=== PATIENT | female | born 2000 | race Caucasian/White ===

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

== ENCOUNTER 2020-05-28 14:34 | Emergency (ER) | payer OTHER ==
[2020-05-28 14:40] VITALS: BP 95/49; PULSE 61; TEMP 98.1; BMI 29.2
== END 2020-05-28 16:37 | disposition home or self-care (01) ==
LOC: JERFT 14:34
DX: S90.211A Contusion of right great toe with damage to nail, initial encounter (principal); W22.8XXA Striking against or struck by other objects, initial encounter
CPT/HCPCS: 73630-TC-RT-FY; 99283-25

== ENCOUNTER 2020-10-29 16:37 | Emergency (ER) | payer OTHER ==
[2020-10-29 16:48] VITALS: BP 115/52; PULSE 89; TEMP 97; BMI 31.4
[2020-10-29] MEDS ORDERED: KETOROLAC TROMETHAMINE 30 MG/1 ML VIAL IM ONE (18:03)
[2020-10-29] MEDS ORDERED: CYCLOBENZAPRINE HCL 10 MG TABLET (FP) PO ONE (18:03)
[2020-10-29] MEDS ORDERED: LIDOCAINE 5% TOPICAL PATCH TP ONE (18:03)
[2020-10-29] MEDS ORDERED: CYCLOBENZAPRINE HCL 10 MG TABLET (FP) ONE (18:10)
[2020-10-29] MEDS ORDERED: KETOROLAC TROMETHAMINE 30 MG/1 ML VIAL ONE (18:10)
[2020-10-29] MEDS ORDERED: LIDOCAINE 5% TOPICAL PATCH ONE (18:10)
[2020-10-29] MEDS ORDERED: LIDOCAINE PATCH REMOVAL MC SCH (22:00)
== END 2020-10-29 18:40 | disposition home or self-care (01) ==
LOC: JERFT 16:37
PROC: 3E0233Z Introduction of Anti-inflammatory into Muscle, Percutaneous Approach (ICD-10-PCS; principal; 2020-10-29)
DX: M54.5 Low back pain (principal)
CPT/HCPCS: 72100-TC-FY; 99284-25

== ENCOUNTER 2021-04-23 13:18 | Emergency (ER) | payer OTHER ==
[2021-04-23 13:30] VITALS: BP 103/60; PULSE 73; TEMP 98.3; BMI 29.4
[2021-04-23 14:18] LABS: EPI CELLS 11 /uL (0-25.1); HYALINE CASTS 0 /uL (0-3.1); PH,URINE 6.5 (5.0-8.0); URINE APPEARANCE CLEAR; URINE BACTERIA 268 /uL (0-1359); URINE BILIRUBIN NEGATIVE (NEGATIVE); URINE COLOR YELLOW; URINE GLUCOSE (UA) NEGATIVE (NEGATIVE); URINE KETONE NEGATIVE (NEGATIVE); URINE LEUK ESTERASE NEGATIVE (NEGATIVE); URINE NITRITE NEGATIVE (NEGATIVE); URINE PROTEIN NEGATIVE (NEGATIVE); URINE RBC 23 /uL (0-23.9); URINE UROBILINOGEN 0.2 mg/dL (0.2-1.0); URINE WBC 2 /uL (0-25.8)
[2021-04-23 14:19] LABS: HCG,QUALITATIVE URINE Negative
[2021-04-23] MEDS ORDERED: FAMOTIDINE 20 MG/50 ML IVPB 20 MG/50 ML MG IVPB ONE ×2 (14:24→14:38)
[2021-04-23] MEDS ORDERED: ONDANSETRON 4 MG/2 ML VIAL IVPUSH ONE (14:24)
[2021-04-23] MEDS ORDERED: SODIUM CHLORIDE 1,000 ML IV STA (14:24)
[2021-04-23] MEDS ORDERED: ACETAMINOPHEN 1000 MG/100 ML BAG IVPB ONE (14:25)
[2021-04-23] MEDS ORDERED: ONDANSETRON 4 MG/2 ML VIAL ONE (14:38)
[2021-04-23] MEDS ORDERED: ACETAMINOPHEN INJECTION 100 ML IVPB ONE (14:42)
[2021-04-23 15:05] LABS: INR 1.14 (0.83-1.09); PROTHROMBIN TIME (PATIENT) 13.1 SEC (9.7-13.0)
[2021-04-23 15:13] LABS: BASO % 0.5 % (0-2.0); EOS % 2.1 % (0-4.5); HEMOGLOBIN 12.8 GM/dL (10.7-15.3); LYMPH % 20.2 % (8-40); MCH 32.6 pg (25.7-33.7); MCHC 34.7 g/dl (32.0-36.0); MEAN CELL VOLUME 93.8 fl (80-96); MEAN PLT VOLUME 8.5 fl (7.5-11.1); MONO % 6.8 % (3.8-10.2); NEUT % 70.4 % (42.8-82.8); PLATELET COUNT 297 10^3/uL (134-434); RBC 3.94 M/mm3 (3.60-5.2); RDW 12.9 % (11.6-15.6); WHITE BLOOD COUNT 7.9 K/mm3 (4.0-10.0)
[2021-04-23 15:16] LABS: CALCIUM 9.2 mg/dL (8.5-10.1)
[2021-04-23 15:17] LABS: ALBUMIN 3.8 g/dl (3.4-5.0); BLOOD UREA NITROGEN 8.9 mg/dL (7-18)
[2021-04-23 15:20] LABS: CREATININE 0.4 mg/dL (0.55-1.3)
[2021-04-23 15:21] LABS: BILIRUBIN,TOTAL 0.4 mg/dL (0.2-1); TOT PROT 7.1 g/dl (6.4-8.2)
[2021-04-23] MEDS ORDERED: morphine CARPU-JECT 2 MG/1 ML DISP.SYRIN IVPUSH ONE (15:52)
[2021-04-23] MEDS ORDERED: MAG HYDROX/AL HYDROX/SIMETH 30 ML UNIT-DOSE CUP PO ONE (15:53)
[2021-04-23] MEDS ORDERED: MAG HYDROX/AL HYDROX/SIMETH 30 ML UNIT-DOSE CUP ONE (15:57)
== END 2021-04-23 18:01 | disposition home or self-care (01) ==
LOC: JERFT 13:18
PROC: 3E023NZ Introduction of Analgesics, Hypnotics, Sedatives into Muscle, Percutaneous Approach (ICD-10-PCS; principal; 2021-04-23)
DX: K21.9 Gastro-esophageal reflux disease without esophagitis (principal)
CPT/HCPCS: 36415; 76705-TC; 80053; 81003; 83690; 84703; 85025; 85610; 87086; 99284-25; J0131

== ENCOUNTER 2021-12-15 13:28 | Emergency (ER) | payer OTHER ==
[2021-12-15 14:03] VITALS: BP 105/66; RESP 18; TEMP 98.3
[2021-12-15] MEDS ORDERED: FAMOTIDINE 20 MG/50 ML IVPB 20 MG/50 ML MG IVPB ONE ×2 (16:27→16:31)
[2021-12-15] MEDS ORDERED: SODIUM CHLORIDE 0.9% 500 ML INFUS.BAG IV ONE (16:27)
[2021-12-15] MEDS ORDERED: KETOROLAC TROMETHAMINE 30 MG/1 ML VIAL IVPUSH ONE (16:27)
[2021-12-15] MEDS ORDERED: ONDANSETRON 4 MG/2 ML VIAL IVPUSH ONE (16:27)
[2021-12-15] MEDS ORDERED: ONDANSETRON 4 MG/2 ML VIAL ONE (16:31)
[2021-12-15] MEDS ORDERED: KETOROLAC TROMETHAMINE 30 MG/1 ML VIAL ONE (16:31)
[2021-12-15 17:32] LABS: PH,URINE 6.5 (5.0-8.0); URINE APPEARANCE CLEAR; URINE BILIRUBIN NEGATIVE (NEGATIVE); URINE COLOR YELLOW; URINE GLUCOSE (UA) NEGATIVE (NEGATIVE); URINE KETONE NEGATIVE (NEGATIVE); URINE LEUK ESTERASE NEGATIVE (NEGATIVE); URINE NITRITE NEGATIVE (NEGATIVE); URINE PROTEIN NEGATIVE (NEGATIVE)
[2021-12-15 18:13] LABS: BASO % 0.5 % (0-2.0); EOS % 1.3 % (0-4.5); HEMATOCRIT 38.3 % (32.4-45.2); HEMOGLOBIN 12.9 GM/dL (10.7-15.3); LYMPH % 25.4 % (8-40); MCHC 33.8 g/dl (32.0-36.0); MEAN CELL VOLUME 94.7 fl (80-96); MEAN PLT VOLUME 8.4 fl (7.5-11.1); MONO % 6.4 % (3.8-10.2); NEUT % 66.4 % (42.8-82.8); PLATELET COUNT 334 10^3/uL (134-434); RBC 4.04 M/mm3 (3.60-5.2); WHITE BLOOD COUNT 9.4 K/mm3 (4.0-10.0)
[2021-12-15 18:32] LABS: ALBUMIN 3.9 g/dl (3.4-5.0); CALCIUM 9.5 mg/dL (8.5-10.1)
[2021-12-15 18:33] LABS: BLOOD UREA NITROGEN 9.4 mg/dL (7-18)
[2021-12-15 18:35] LABS: CREATININE 0.6 mg/dL (0.55-1.3)
[2021-12-15 18:37] LABS: BILIRUBIN,TOTAL 0.2 mg/dL (0.2-1); TOT PROT 7.1 g/dl (6.4-8.2)
[2021-12-15 20:14] VITALS: PULSE 81
== END 2021-12-15 20:21 | disposition home or self-care (01) ==
LOC: JER 13:28
DX: N83.201 Unspecified ovarian cyst, right side (principal)
CPT/HCPCS: 36415; 76830-TC; 80053; 81003; 83690; 84703; 85025; 87086; 99284-25

== ENCOUNTER 2022-03-24 08:26 | Emergency (ER) | payer OTHER ==
[2022-03-24 08:32] VITALS: BMI 28.5
[2022-03-24] MEDS ORDERED: SODIUM CHLORIDE 1,000 ML IV STA (09:22)
[2022-03-24] MEDS ORDERED: FAMOTIDINE 20 MG/50 ML IVPB 20 MG/50 ML MG IVPB ONE ×2 (09:23→10:03)
[2022-03-24] MEDS ORDERED: ONDANSETRON 4 MG/2 ML VIAL IVPUSH ONE (09:23)
[2022-03-24] MEDS ORDERED: ACETAMINOPHEN 1000 MG/100 ML BAG IVPB ONE (09:29)
[2022-03-24] MEDS ORDERED: ACETAMINOPHEN INJECTION 100 ML IVPB ONE (10:03)
[2022-03-24] MEDS ORDERED: ONDANSETRON 4 MG/2 ML VIAL ONE (10:03)
[2022-03-24 10:55] LABS: EPI CELLS >36 /uL (0-25.1); HCG,QUALITATIVE URINE Negative; HYALINE CASTS 1 /uL (0-3.1); URINE APPEARANCE CLOUDY; URINE BACTERIA 1771 /uL (0-1359); URINE BILIRUBIN NEGATIVE (NEGATIVE); URINE COLOR YELLOW; URINE GLUCOSE (UA) NEGATIVE (NEGATIVE); URINE KETONE NEGATIVE (NEGATIVE); URINE LEUK ESTERASE NEGATIVE (NEGATIVE); URINE NITRITE NEGATIVE (NEGATIVE); URINE PROTEIN TRACE (NEGATIVE); URINE UROBILINOGEN 0.2 mg/dL (0.2-1.0); URINE WBC 36 /uL (0-25.8)
[2022-03-24 10:56] LABS: BASO % 0.6 % (0-2.0); EOS % 1.1 % (0-4.5); HEMATOCRIT 38.4 % (32.4-45.2); HEMOGLOBIN 12.9 GM/dL (10.7-15.3); LYMPH % 20.7 % (8-40); MCH 32.3 pg (25.7-33.7); MCHC 33.5 g/dl (32.0-36.0); MEAN CELL VOLUME 96.4 fl (80-96); MEAN PLT VOLUME 7.5 fl (7.5-11.1); MONO % 6.6 % (3.8-10.2); PLATELET COUNT 359 10^3/uL (134-434); RBC 3.99 M/mm3 (3.60-5.2); RDW 12.7 % (11.6-15.6); WHITE BLOOD COUNT 5.6 K/mm3 (4.0-10.0)
[2022-03-24 11:02] LABS: URINE RBC 183.4 /uL (0-23.9)
[2022-03-24 11:11] LABS: ALBUMIN 3.9 g/dl (3.4-5.0); CALCIUM 9.8 mg/dL (8.5-10.1)
[2022-03-24 11:13] LABS: CREATININE 0.5 mg/dL (0.55-1.3)
[2022-03-24 11:15] LABS: BILIRUBIN,TOTAL 0.6 mg/dL (0.2-1); TOT PROT 7.4 g/dl (6.4-8.2)
[2022-03-24] MEDS ORDERED: MAG HYDROX/AL HYDROX/SIMETH 30 ML UNIT-DOSE CUP PO ONE (13:53)
[2022-03-24] MEDS ORDERED: MAG HYDROX/AL HYDROX/SIMETH 30 ML UNIT-DOSE CUP ONE (14:09)
[2022-03-24 14:34] VITALS: BP 100/60; PULSE 70; RESP 16; TEMP 97.8
== END 2022-03-24 14:20 | disposition home or self-care (01) ==
LOC: JER 08:26
PROC: 3E033GC Introduction of Other Therapeutic Substance into Peripheral Vein, Percutaneous Approach (ICD-10-PCS; principal; 2022-03-24)
DX: K29.00 Acute gastritis without bleeding (principal); N30.00 Acute cystitis without hematuria
CPT/HCPCS: 36415; 76700-TC; 80053; 81003; 82150; 83690; 84703; 85025; 87077; 87086; 87186; 99284-25

== ENCOUNTER 2022-04-08 10:11 | Emergency (ER) | payer OTHER ==
[2022-04-08 10:24] VITALS: BMI 28.6
[2022-04-08] MEDS ORDERED: SODIUM CHLORIDE 0.9% 500 ML INFUS.BAG IV ONE (11:25)
[2022-04-08 13:00] LABS: BASO % 0.8 % (0-2.0); EOS % 1.5 % (0-4.5); HEMATOCRIT 36.3 % (32.4-45.2); HEMOGLOBIN 12.6 GM/dL (10.7-15.3); LYMPH % 21.1 % (8-40); MCH 33.3 pg (25.7-33.7); MCHC 34.7 g/dl (32.0-36.0); MEAN CELL VOLUME 95.9 fl (80-96); MEAN PLT VOLUME 7.7 fl (7.5-11.1); MONO % 8.4 % (3.8-10.2); NEUT % 68.2 % (42.8-82.8); PLATELET COUNT 326 10^3/uL (134-434); RBC 3.78 M/mm3 (3.60-5.2); RDW 12.5 % (11.6-15.6); WHITE BLOOD COUNT 6.6 K/mm3 (4.0-10.0)
[2022-04-08 13:20] LABS: CHLORIDE 106 mmol/L (98-107); SODIUM 142 mmol/L (136-145)
[2022-04-08 13:30] LABS: CALCIUM 9.3 mg/dL (8.5-10.1)
[2022-04-08 13:31] LABS: ALBUMIN 3.8 g/dl (3.4-5.0); ANION GAP 6 MMOL/L (8-16); BLOOD UREA NITROGEN 10.7 mg/dL (7-18); CO2 30 mmol/L (21-32); GLUCOSE,RANDOM 87 mg/dL (74-106)
[2022-04-08 13:32] LABS: LIPASE 141 U/L (73-393)
[2022-04-08 13:34] LABS: CREATININE 0.4 mg/dL (0.55-1.3); SGOT/AST 17 U/L (15-37); SGPT/ALT 19 U/L (13-61)
[2022-04-08 13:36] LABS: BILIRUBIN,TOTAL 0.4 mg/dL (0.2-1); TOT PROT 6.7 g/dl (6.4-8.2)
[2022-04-08 13:37] LABS: ALK PHOS 59 U/L (45-117)
[2022-04-08 16:29] VITALS: BP 103/69; PULSE 94; RESP 16; TEMP 98.9
== END 2022-04-08 16:29 | disposition home or self-care (01) ==
LOC: JER 10:11
DX: R42 Dizziness and giddiness (principal)
CPT/HCPCS: 0241U-QW; 36415; 80053; 83690; 84702; 85025; 85379; 93005; 93010; 93308; 99285-25

== ENCOUNTER 2022-09-17 05:44 | Day surgery (SDC) | payer OTHER ==
[2022-09-16 10:57] VITALS: BMI 29.4
[2022-09-17] MEDS ORDERED: BUPIVACAINE HCL/PF 0.5% (5MG/ML) 10 ML VIAL ONE (07:24)
[2022-09-17] MEDS ORDERED: PROPOFOL 20 ML ONE ×2 (07:43→09:53)
[2022-09-17] MEDS ORDERED: ROCURONIUM BROMIDE 50 MG/5 ML SYRINGE ONE (07:44)
[2022-09-17] MEDS ORDERED: MIDAZOLAM HCL 2 MG/2 ML SINGLE DOSE VIAL ONE (07:44)
[2022-09-17] MEDS ORDERED: LIDOCAINE HCL/PF 2% SDV 5ML VIAL ONE (07:49)
[2022-09-17] MEDS ORDERED: ONDANSETRON 4 MG/2 ML VIAL IVPUSH PRN (07:55)
[2022-09-17] MEDS ORDERED: PROMETHAZINE HCL 25 MG/1 ML VIAL IVPB PRN (07:55)
[2022-09-17] MEDS ORDERED: oxyCODONE HCL 5 MG TABLET PO PRN (07:55)
[2022-09-17] MEDS ORDERED: LACTATED RINGERS SOLUTION 1,000 ML IV SCH (08:00)
[2022-09-17] MEDS ORDERED: SODIUM CHLORIDE 0.9% P/F 10 ML VIAL IJ ONE (08:13)
[2022-09-17] MEDS ORDERED: ceFAZolin SODIUM 1 GM VIAL ONE (08:13)
[2022-09-17] MEDS ORDERED: ceFAZolin SODIUM 1 GM VIAL IVPB ONE (08:19)
[2022-09-17] MEDS ORDERED: DEXAMETHASONE SOD PHOSPHATE 4 MG/1 ML VIAL ONE (08:26)
[2022-09-17] MEDS ORDERED: ONDANSETRON 4 MG/2 ML VIAL ONE (08:26)
[2022-09-17] MEDS ORDERED: BUPIVACAINE HCL/PF 0.5% (5 MG/ML) 30 ML VIAL IJ ONE ×2 (08:39)
[2022-09-17] MEDS ORDERED: ACETAMINOPHEN INJECTION 100 ML IVPB ONE (08:42)
[2022-09-17] MEDS ORDERED: GLYCOPYRROLATE 0.2 MG/1 ML VIAL ONE (09:28)
[2022-09-17] MEDS ORDERED: NEOSTIGMINE METHYLSULFATE 0.5 MG/1 ML - 10 ML MDV ONE (09:28)
[2022-09-17] MEDS ORDERED: KETOROLAC TROMETHAMINE 30 MG/1 ML VIAL ONE (09:32)
[2022-09-17] MEDS ORDERED: oxyCODONE HCL 5 MG TABLET ONE (13:49)
[2022-09-17 14:09] VITALS: RESP 18
[2022-09-17 14:52] VITALS: BP 120/70
[2022-09-17 14:57] VITALS: PULSE 78; TEMP 98.2
== END 2022-09-17 14:58 | disposition home or self-care (01) ==
LOC: JASU-SURG 05:44
PROVIDERS: ATTEND Surgery
PROC: 0FT44ZZ Resection of Gallbladder, Percutaneous Endoscopic Approach (ICD-10-PCS; principal; 2022-09-17 08:00)
DX: K81.1 Chronic cholecystitis (principal)
CPT/HCPCS: 81025; 88304-TC; 94760

== ENCOUNTER 2023-02-19 09:47 | Emergency (ER) | payer OTHER ==
[2023-02-19 10:07] VITALS: RESP 18; TEMP 98.6; BMI 28.1
[2023-02-19] MEDS ORDERED: ONDANSETRON 4 MG/2 ML VIAL IVPUSH ONE (10:55)
[2023-02-19] MEDS ORDERED: morphine CARPU-JECT 2 MG/1 ML DISP.SYRIN IVPUSH ONE (10:58)
[2023-02-19] MEDS ORDERED: ONDANSETRON 4 MG/2 ML VIAL ONE (11:22)
[2023-02-19 11:49] LABS: BASO % 0.6 % (0-2.0); EOS % 2.3 % (0-4.5); HEMATOCRIT 38.8 % (32.4-45.2); HEMOGLOBIN 13.3 GM/dL (10.7-15.3); LYMPH % 16.9 % (8-40); MCH 32.4 pg (25.7-33.7); MCHC 34.3 g/dl (32.0-36.0); MEAN CELL VOLUME 94.4 fl (80-96); MEAN PLT VOLUME 7.6 fl (7.5-11.1); MONO % 8.2 % (3.8-10.2); PLATELET COUNT 374 10^3/uL (134-434); RBC 4.11 M/mm3 (3.60-5.2); RDW 12.9 % (11.6-15.6); WHITE BLOOD COUNT 7.2 K/mm3 (4.0-10.0)
[2023-02-19 11:57] LABS: PH,URINE 7.5 (5.0-8.0); URINE APPEARANCE CLEAR; URINE BILIRUBIN NEGATIVE (NEGATIVE); URINE COLOR YELLOW; URINE GLUCOSE (UA) NEGATIVE (NEGATIVE); URINE KETONE NEGATIVE (NEGATIVE); URINE LEUK ESTERASE NEGATIVE (NEGATIVE); URINE NITRITE NEGATIVE (NEGATIVE); URINE PROTEIN NEGATIVE (NEGATIVE); URINE UROBILINOGEN 0.2 mg/dL (0.2-1.0)
[2023-02-19 12:17] LABS: CALCIUM 9.5 mg/dL (8.5-10.1)
[2023-02-19 12:18] LABS: ALBUMIN 3.9 g/dl (3.4-5.0); BLOOD UREA NITROGEN 9.7 mg/dL (7-18)
[2023-02-19 12:21] LABS: CREATININE 0.5 mg/dL (0.55-1.3)
[2023-02-19 12:22] LABS: BILIRUBIN,TOTAL 0.3 mg/dL (0.2-1); TOT PROT 7.2 g/dl (6.4-8.2)
[2023-02-19] MEDS ORDERED: KETOROLAC TROMETHAMINE 30 MG/1 ML VIAL IVPUSH ONE (12:35)
[2023-02-19] MEDS ORDERED: ACETAMINOPHEN 500 MG TABLET (FP) PO ONE (12:36)
[2023-02-19] MEDS ORDERED: KETOROLAC TROMETHAMINE 30 MG/1 ML VIAL ONE (13:00)
[2023-02-19] MEDS ORDERED: ACETAMINOPHEN 500 MG TABLET (FP) ONE (13:01)
[2023-02-19 15:26] VITALS: BP 110/68; PULSE 71
== END 2023-02-19 15:26 | disposition home or self-care (01) ==
LOC: JER 09:47
PROC: 3E0333Z Introduction of Anti-inflammatory into Peripheral Vein, Percutaneous Approach (ICD-10-PCS; principal; 2023-02-19)
PROC: 3E033GC Introduction of Other Therapeutic Substance into Peripheral Vein, Percutaneous Approach (ICD-10-PCS; 2023-02-19)
PROC: 3E033GC Introduction of Other Therapeutic Substance into Peripheral Vein, Percutaneous Approach (ICD-10-PCS; 2023-02-19)
DX: R10.11 Right upper quadrant pain (principal); R10.811 Right upper quadrant abdominal tenderness; R11.0 Nausea
CPT/HCPCS: 36415; 74177-TC; 76705-TC; 80053; 81003; 83690; 84703; 85025; 87086; 99285-25; Q9967

== ENCOUNTER 2024-03-17 09:41 | Inpatient (IN) | payer OTHER ==
[2024-03-17] MEDS: ELECTROLYTE-148 SOLN 1,000 ML IV SCH (10:30)
[2024-03-17 11:15] LABS: BASO % 0.3 % (0-2.0); EOS % 0.6 % (0-4.5); HEMATOCRIT 30.3 % (32.4-45.2); HEMOGLOBIN 10.3 GM/dL (10.7-15.3); LYMPH % 12.9 % (8-40); MCH 28.4 pg (25.7-33.7); MCHC 33.9 g/dl (32.0-36.0); MEAN CELL VOLUME 83.7 fl (80-96); MEAN PLT VOLUME 7.9 fl (7.5-11.1); MONO % 5.5 % (3.8-10.2); NEUT % 80.7 % (42.8-82.8); PLATELET COUNT 362 10^3/uL (134-434); RBC 3.62 M/mm3 (3.60-5.2); RDW 14.3 % (11.6-15.6); WHITE BLOOD COUNT 9.8 K/mm3 (4.0-10.0)
[2024-03-17 11:20] LABS: INR 0.92 (0.83-1.09); PROTHROMBIN TIME (PATIENT) 10.6 SEC (9.7-13.0)
[2024-03-17 11:23] LABS: ACTIVATED PTT 26.7 SECONDS (25.2-36.5)
[2024-03-17 11:30] LABS: POTASSIUM 3.8 mmol/L (3.5-5.1)
[2024-03-17 11:31] VITALS: BMI 34.6
[2024-03-17 11:32] LABS: BLOOD UREA NITROGEN 6.3 mg/dL (7-18); CALCIUM 9.1 mg/dL (8.5-10.1)
[2024-03-17 11:38] LABS: CREATININE 0.3 mg/dL (0.55-1.3)
[2024-03-17 12:23] LABS: HIV INTERPRETATION NEGATIVE (NEGATIVE)
[2024-03-17] MEDS ORDERED: BUTORPHANOL TARTRATE 2 MG/ML VIAL ONE (13:47)
[2024-03-17] MEDS ORDERED: PROMETHAZINE HCL 25 MG/1 ML VIAL ONE (13:47)
[2024-03-17] MEDS: BUTORPHANOL TARTRATE 2 MG/ML VIAL IVPB PRN (13:51)
[2024-03-17] MEDS ORDERED: AMPICILLIN SODIUM 2 GM VIAL ONE (14:04)
[2024-03-17] MEDS: AMPICILLIN - 2 GM in SODIUM CHLORIDE 100 ML IVPB ONE (14:11)
[2024-03-17] MEDS: OXYTOCIN 30 UNITS in 0.9% NS 30 UNIT/500 ML INFUS.BAG IVPB SCH (14:13)
[2024-03-17] MEDS ORDERED: OXYTOCIN 30 UNITS in 0.9% NS 30 UNIT/500 ML INFUS.BAG IVPB ONE (14:13)
[2024-03-17] MEDS ORDERED: AMPICILLIN - 1 GM in SODIUM CHLORIDE 100 ML IVPB SCH (15:30)
[2024-03-17] MEDS ORDERED: FENTANYL/BUPIVACAINE/NS/PF - PCEA - 50 ML DISP.SYRIN EP ONE ×2 (16:01→21:29)
[2024-03-17] MEDS ORDERED: NALOXONE HCL 0.4 MG/ML VIAL IVPUSH PRN (16:08)
[2024-03-17] MEDS ORDERED: BUPIVACAINE HCL/PF 0.25% (2.5MG/ML) 10 ML VIAL ONE (16:09)
[2024-03-17] MEDS: FENTANYL/BUPIVACAINE/NS/PF - PCEA - 50 ML DISP.SYRIN EP SCH (16:25)
[2024-03-17] MEDS ORDERED: PHENYLEPHRINE HCL 10 MG/1 ML SINGLE DOSE VIAL ONE (16:39)
[2024-03-17] MEDS ORDERED: AMPICILLIN SODIUM 1 GM VIAL ONE ×2 (18:32→21:29)
[2024-03-17] MEDS: AMPICILLIN - 1 GM in SODIUM CHLORIDE 100 ML IVPB SCH (18:33)
[2024-03-18] MEDS ORDERED: AMPICILLIN SODIUM 1 GM VIAL ONE ×2 (01:25→05:42)
[2024-03-18] MEDS ORDERED: FENTANYL/BUPIVACAINE/NS/PF - PCEA - 50 ML DISP.SYRIN EP ONE ×2 (01:38→04:40)
[2024-03-18] MEDS: ACETAMINOPHEN 325 MG TABLET (FP) PO ONE (02:40)
[2024-03-18] MEDS ORDERED: ACETAMINOPHEN 325 MG TABLET (FP) ONE (02:47)
[2024-03-18] MEDS ORDERED: LIDO 2%/EPI 1:200000 PRESRVFRE (20 ML SDVIAL) ONE (07:24)
[2024-03-18] MEDS ORDERED: ceFAZolin SODIUM 1 GM VIAL ONE (07:25)
[2024-03-18] MEDS ORDERED: METHYLERGONOVINE MALEATE 0.2 MG/1 ML AMP IM PRN (07:32)
[2024-03-18] MEDS ORDERED: FENTANYL CITRATE/PF 50 MCG/ML VIAL ONE ×2 (07:36→07:57)
[2024-03-18] MEDS ORDERED: AZITHROMYCIN IVPB 500 MG/250 ML BAG IVPB ONE (07:46)
[2024-03-18] MEDS ORDERED: morphine SULFATE/PF 1 MG/2 ML (2cc Syringe - QUVA) ONE (07:57)
[2024-03-18] MEDS: OXYTOCIN 20 UNITS in 0.9% NS 20 UNIT/1,000 ML INFUS.BAG IV SCH (08:30)
[2024-03-18] MEDS ORDERED: OXYTOCIN 20 UNITS in 0.9% NS 20 UNIT/1,000 ML INFUS.BAG IV ONE (08:32)
[2024-03-18] MEDS ORDERED: ONDANSETRON 4 MG/2 ML VIAL IVPUSH PRN (09:11)
[2024-03-18 10:04] LABS: CORD BASE EXCESS -5.4 mmol/L (0-2); CORD pH 7.27 (7.14-7.44)
[2024-03-18 10:05] LABS: CORD BASE EXCESS -6.7 mmol/L (0-2); CORD HCO3 19.4 mmHg (20-29); CORD PCO2 40.7 mmHg (30-78); CORD pH 7.295 (7.14-7.44)
[2024-03-18] MEDS ORDERED: ACETAMINOPHEN INJECTION 100 ML ONE (10:28)
[2024-03-18] MEDS: ACETAMINOPHEN 1000 MG/100 ML BAG IVPB ONE (10:30)
[2024-03-18] MEDS: IBUPROFEN 600 MG TABLET (FP) PO PRN (16:36)
[2024-03-18] MEDS: SIMETHICONE 80 MG TAB.CHEW (FP) PO PRN (16:36)
[2024-03-19 07:52] VITALS: RESP 18
[2024-03-19 08:10] LABS: BASO % 0.6 % (0-2.0); EOS % 0.7 % (0-4.5); HEMATOCRIT 24.6 % (32.4-45.2); HEMOGLOBIN 8.3 GM/dL (10.7-15.3); LYMPH % 17.9 % (8-40); MCH 28.2 pg (25.7-33.7); MCHC 33.6 g/dl (32.0-36.0); MEAN CELL VOLUME 83.9 fl (80-96); MONO % 6.4 % (3.8-10.2); NEUT % 74.4 % (42.8-82.8); PLATELET COUNT 299 10^3/uL (134-434); RBC 2.93 M/mm3 (3.60-5.2); RDW 14.6 % (11.6-15.6); WHITE BLOOD COUNT 8.7 K/mm3 (4.0-10.0)
[2024-03-19] MEDS ORDERED: DIPHTH,PERTUSS(ACELL),TET 0.5 ML DISP.SYRIN IM ONE (10:00)
[2024-03-19] MEDS ORDERED: FLU VACCINE (FLULAVAL) PF 45 MCG/0.5 ML SYRINGE 2024-2025 IM ONE (10:00)
[2024-03-19] MEDS ORDERED: oxyCODONE HCL 5 MG TABLET PO PRN (19:32)
[2024-03-19] MEDS: SENNOSIDES/DOCUSATE COMBO (SENNA PLUS) TABLET (UD) PO PRN (22:00)
[2024-03-20] MEDS: DIPHTH,PERTUSS(ACELL),TET 0.5 ML DISP.SYRIN IM ONE (09:52)
[2024-03-20] MEDS: FLU VACCINE (FLULAVAL) PF 45 MCG/0.5 ML SYRINGE 2024-2025 IM ONE (09:53)
[2024-03-20] MEDS: ACETAMINOPHEN/CAFFEINE/BUTALBITAL 1 TAB PO PRN (15:40)
[2024-03-20] MEDS: oxyCODONE HCL 5 MG TABLET PO PRN (21:45)
[2024-03-21 08:18] LABS: BASO % 0.4 % (0-2.0); EOS % 2.1 % (0-4.5); HEMATOCRIT 26.4 % (32.4-45.2); HEMOGLOBIN 8.8 GM/dL (10.7-15.3); LYMPH % 15.7 % (8-40); MCH 28.1 pg (25.7-33.7); MCHC 33.2 g/dl (32.0-36.0); MEAN CELL VOLUME 84.5 fl (80-96); MEAN PLT VOLUME 7.8 fl (7.5-11.1); MONO % 5.7 % (3.8-10.2); NEUT % 76.1 % (42.8-82.8); PLATELET COUNT 377 10^3/uL (134-434); RBC 3.13 M/mm3 (3.60-5.2); RDW 14.6 % (11.6-15.6); WHITE BLOOD COUNT 9.4 K/mm3 (4.0-10.0)
[2024-03-21] MEDS: BISACODYL 10 MG SUPP.RECT RC PRN (09:19)
[2024-03-21] MEDS: ACETAMINOPHEN/CAFFEINE/BUTALBITAL 1 TAB PO SCH (16:17)
[2024-03-21] MEDS: ACETAMINOPHEN 325 MG TABLET (FP) PO SCH ×2 (18:06→20:08)
[2024-03-21] MEDS: MELATONIN 1 MG TABLET PO ONE (22:09)
[2024-03-22 08:25] VITALS: BP 107/72; PULSE 88; TEMP 98
[2024-03-22 14:21] LABS: POC NITRAZINE POS
== END 2024-03-22 17:15 | disposition home or self-care (01) | DRG 540 ==
LOC: JDEL 09:41 → JLDR 10:10 → J3W 03-18 11:40
PROVIDERS: ADMIT Obstetrics & Gynecology; ATTEND Obstetrics & Gynecology
PROC: 10D00Z1 Extraction of Products of Conception, Low, Open Approach (ICD-10-PCS; principal; 2024-03-18)
DX: O41.93X0 Disorder of amniotic fluid and membranes, unspecified, third trimester, not applicable or unspecified (principal); O62.1 Secondary uterine inertia; Z3A.38 38 weeks gestation of pregnancy; Z37.0 Single live birth
CPT/HCPCS: 36415; 36600; 80048; 82803; 83986-QW; 85025; 85610; 85730; 86780; 86803; 86850; 86900; 86901; 87340; 87389; 88307-TC; 90656; 90715; G0008; J0131